=== PATIENT | male | born 1980 | race Caucasian/White ===

== ENCOUNTER 2017-05-19 15:39 | Emergency (ER) | payer OTHER ==
[~2017-05-19] VITALS: Ht 180.3 cm; Wt 65.3 kg
[2017-05-19 15:51] VITALS: Ht 180.3 cm; Wt 65.3 kg
[2017-05-19 16:33] VITALS: O2SAT 97
[2017-05-19] MEDS ORDERED: ACETAMINOPHEN 500 MG TAB PO STA (16:33)
[2017-05-19] MEDS ORDERED: KETOROLAC TROMETHAMINE 30 MG/ML VIAL IV STA (16:33)
[2017-05-19] MEDS ORDERED: SODIUM CHLORIDE 0.9% 1000ML 1,000 ML IV ONE (16:45)
--- NOTE | 2017-05-19 16:48 | EMERGENCY ROOM VISIT NOTE ---
History First contact with patient: 16:20 Chief Complaint: CHEST PAIN Stated Complaint: CHEST PAIN LT SIDE, HARD TIME BREATHING Nursing Triage Summary: Chest pain since yesterday. Cough for about one week. Last night began feeling short of breath. History of Present Illness The patient is a 36 year old male who presents to the Emergency Room with complaints of flulike symptoms and chest pain for approximately 1 week. The patient has had a significant productive cough. His chest pain is on the left side and sharp. It is worse with deep inspiration and coughing. He denies any shortness of breath. He has felt fever and chills. He did not take his temperature at home. He denies any history of coronary disease. No sick contacts. The patient reportedly has a history of a left-sided pulmonary mass. He does not have insurance; therefore, he has not seen a doctor for quite some time The patient also notes an approximately 40 pound weight loss within the last 6- 8 months. No change in appetite. Review of Systems 10 system review performed and negative unless noted in HPI or below Past Medical/Surgical History Pulmonary mass Social History Smoking Status: Current Every Day Smoker Occupation Status: employed Current/Historical Medications Scheduled Buprenorphine Hcl (Subutex), 8 MG SL DAILY Levofloxacin (Levaquin), 500 MG PO DAILY Physical Exam Vital Signs Date Time Temp Pulse Resp B/P (MAP) Pulse Ox O2 Delivery O2 Flow Rate FiO2 05/19/17 19:44 64 24 109/59 95 05/19/17 19:05 37.0 61 18 106/60 95 Room Air 05/19/17 17:19 65 16 110/60 96 Room Air 05/19/17 16:43 66 05/19/17 16:33 97 Room Air 05/19/17 16:33 97 Room Air 05/19/17 15:51 37.0 83 20 126/78 95 Room Air Physical Exam VITALS: Vitals are noted on the nurse's note and reviewed by myself. Vital signs stable. GENERAL: 36-year-old male, mildly acutely ill in appearance, SKIN: The skin was without rashes, erythema, edema, or bruising. Multiple tattoos noted HEAD: Normocephalic atraumatic. MOUTH: Mucous membranes slightly dry. Tonsils are not enlarged. Pharynx without erythema or exudate. Uvula midline. Airway patent. Tongue does not deviate. NECK: Supple without nuchal rigidity. Lymphadenopathy noted in the anterior cervical chain bilaterally. Cervical spine is nontender. No JVD. HEART: Tachycardic, regular rhythm without murmurs gallops or rubs. Tenderness to palpation inferior to the left nipple LUNGS: Clear to auscultation bilaterally without wheezes, rales or rhonchi. No accessory muscle use. ABDOMEN: Positive bowel sounds x 4.Soft, nontender, without organomegaly. No guarding or rebound tenderness. MUSCULOSKELETAL: No muscle atrophy, erythema, or edema noted. Strength 5/5 throughout. NEURO: Patient was alert and oriented to person place and time. Normal sensation to touch. No focal neurological deficits. Medical Decision & Procedures ER Provider Diagnostic Interpretation: CT chest with contrast 1. No evidence for pulmonary embolus. 2. Multifocal patchy airspace opacities and tree-in-bud nodular opacities seen within the bilateral mid to lower lung zones. This is consistent with a bronchopneumonia. Electronically signed by: Jese Santiago M.D. 05/19/2017 6:33 PM Dictated Date/Time: 05/19/2017 6:27 PM The status of this report is Signed. Draft = Not yet reviewed or approved by Radiologist. Signed = Reviewed and approved by Radiologist. <AttendingPhy></AttendingPhy> <FamilyPhy>No Doctor, Assigned</FamilyPhy> < PrimaryPhy>No Doctor, Assigned</PrimaryPhy> <UnitNumber>[id number]</UnitNumber> <VisitNumber>[id number]</VisitNumber> <PatientName>NIGEL UGARTE Laboratory Results 05/19/17 16:40 Red Blood Count 3.73, Mean Corpuscular Volume 86.1, Mean Corpuscular Hemoglobin 29.8, Mean Corpuscular Hemoglobin Concent 34.6, Mean Platelet Volume 9.4, Neutrophils (%) (Auto) 65.3, Lymphocytes (%) (Auto) 16.1, Monocytes (%) (Auto) 17.2, Eosinophils (%) (Auto) 0.9, Basophils (%) (Auto) 0.4, Neutrophils # (Auto ) 5.00, Lymphocytes # (Auto) 1.23, Monocytes # (Auto) 1.32, Eosinophils # (Auto ) 0.07, Basophils # (Auto) 0.03 05/19/17 16:40 Test 05/19/17 16:40 05/19/17 16:48 White Blood Count 7.66 K/uL (4.8-10.8) Red Blood Count 3.73 M/uL (4.7-6.1) Hemoglobin 11.1 g/dL (14.0-18.0) Hematocrit 32.1 % (42-52) Mean Corpuscular Volume 86.1 fL (80-100) Mean Corpuscular Hemoglobin 29.8 pg (25-34) Mean Corpuscular Hemoglobin Concent 34.6 g/dl (32-36) Platelet Count 269 K/uL (130-400) Mean Platelet Volume 9.4 fL (7.4-10.4) Neutrophils (%) (Auto) 65.3 % Lymphocytes (%) (Auto) 16.1 % Monocytes (%) (Auto) 17.2 % Eosinophils (%) (Auto) 0.9 % Basophils (%) (Auto) 0.4 % Neutrophils # (Auto) 5.00 K/uL (1.4-6.5) Lymphocytes # (Auto) 1.23 K/uL (1.2-3.4) Monocytes # (Auto) 1.32 K/uL (0.11-0.59) Eosinophils # (Auto) 0.07 K/uL (0-0.5) Basophils # (Auto) 0.03 K/uL (0-0.2) RDW Standard Deviation 44.8 fL (36.4-46.3) RDW Coefficient of Variation 14.3 % (11.5-14.5) Immature Granulocyte % (Auto) 0.1 % Immature Granulocyte # (Auto) 0.01 K/uL (0.00-0.02) D-Dimer 1220 ug/L FEU (0-500) Anion Gap 5.0 mmol/L (3-11) Est Creatinine Clear Calc Drug Dose 200.3 ml/min Estimated GFR () > 150.0 Estimated GFR (Non- 143.8 BUN/Creatinine Ratio 11.4 (10-20) Calcium Level 8.0 mg/dl (8.5-10.1) Total Bilirubin 0.3 mg/dl (0.2-1) Aspartate Amino Transf (AST/SGOT) 33 U/L (15-37) Alanine Aminotransferase (ALT/SGPT) 34 U/L (12-78) Alkaline Phosphatase 88 U/L (45-117) Total Creatine Kinase 132 U/L (39-308) Creatine Kinase MB 1.3 ng/ml (0.5-3.6) Creatine Kinase MB Ratio 1.0 (0-3.0) Troponin I < 0.015 ng/ml (0-0.045) Total Protein 6.5 gm/dl (6.4-8.2) Albumin 2.7 gm/dl (3.4-5.0) Globulin 3.8 gm/dl (2.5-4.0) Albumin/Globulin Ratio 0.7 (0.9-2) Thyroid Stimulating Hormone (TSH) 1.010 uIu/ml (0.300-4.500) Influenza Type A (RT-PCR) Neg for Influ A (NEG) Influenza Type B (RT-PCR) Neg for Influ B (NEG) Medications Administered Medications (Trade) Dose Ordered Sig/Jimmy Route Start Time Stop Time Status Last Admin Dose Admin Ketorolac Tromethamine (Toradol Inj) 30 mg NOW STAT IV 05/19/17 16:33 05/19/17 16:36 DC 05/19/17 16:33 30 MG Sodium Chloride 1,000 ml @ 999 mls/hr Q1H1M ONCE IV 05/19/17 16:45 05/19/17 17:45 DC 05/19/17 16:45 999 MLS/HR Acetaminophen (Tylenol Tab) 1,000 mg NOW STAT PO 05/19/17 16:33 05/19/17 16:36 DC 05/19/17 16:33 1,000 MG Levofloxacin (Levaquin Tab) 750 mg NOW ONCE PO 05/19/17 19:15 05/19/17 19:16 DC 05/19/17 19:42 750 MG Potassium Chloride (Klor-Con M10) 40 meq NOW STAT PO 05/19/17 19:17 05/19/17 19:18 DC 05/19/17 19:42 40 MEQ ECG Indication: chest pain Rate (beats per minute): 72 Rhythm: normal sinus Findings: left axis deviation Comparison ECG Date: no prior available ED Course Patient was seen and examined Vital signs including blood pressure were reviewed medications list was verified with patient Labs were obtained, and a saline lock was established An EKG was performed and reviewed by myself and my supervising physician. He was put on a monitor. The patient was given Toradol 30 mg IV and Tylenol 1 g by mouth for pain. He was hydrated with 1 L of normal saline. Upon reevaluation, the patient's pain was much better. We discussed his workup. He voiced understanding. The case was also discussed my supervising physician who is in agreement with my plan The patient was given 1 dose of Levaquin. He was also given potassium chloride 40 mEq by mouth Discharge instructions were reviewed, and he was discharged in good condition I Medical Decision Differential diagnosis: Bronchitis, pneumonia, strep pharyngitis, viral pharyngitis, influenza , other viral syndrome, malignancy, thyroid abnormality, Acute myocardial infarction, cardiac arrhythmia, anemia, thyroid abnormality, pneumothorax, pneumonia, bronchitis, pericarditis, pneumothorax, electrolyte imbalance This patient is a 36-year-old male presents to emergency department with flulike symptoms, chest pain and weight loss. On exam, he was mildly acutely ill in appearance. His vital signs were stable. His chest pain was reproducible. My thought was this was likely infectious. His labs indicated an elevated d-dimer, which is why ordered a CT to rule out PE. This was consistent with pneumonia. The patient had good symptomatic relief in the emergency department. He is not hypoxic. This is likely community-acquired. I believe he is stable to be discharged home with close follow-up. He and his significant other are comfortable and agree with this plan. He will be sent home on a 7 day course of Levaquin. He was encouraged to return to the emergency department immediately with any new or worsening symptoms This chart was completed in part utilizing [employer] Speech Voice Recognition software. Attempts were made to minimize the grammatical errors, random word insertions, pronoun errors and incomplete sentences. Any formal questions or concerns about the content, text or information contained within the body of this dictation should be directly addressed to the provider for clarification. Medication Reconcilliation Current Medication List: was personally reviewed by me Blood Pressure Screening Patient's blood pressure: Normal blood pressure Impression Primary Impression: Community acquired pneumonia Departure Information Dispostion Home / Self-Care Condition FAIR Prescriptions Levofloxacin (Levaquin) 500 Mg Tab 500 MG PO DAILY for 6 Days, #6 TAB Prov: Megan Dominguez PA-C 05/19/17 Referrals No Doctor, Assigned (PCP) Patient Instructions ED Pneumonia Adult, My [facility] Additional Instructions You have been evaluated in the emergency department with flulike symptoms and chest pain. This is likely due to pneumonia. Please take the entire course of antibiotics. Please increase your fluids over the next several days. Ibuprofen 800 mg and/or Tylenol 1000 mg every 8 hours for pain or fever You may also alternate these medications for more effective pain relief: Ibuprofen --4 HRS--> Tylenol --4 HRS--> ibuprofen --4 HRS--> Tylenol .... It is very important for you to have close follow-up with your primary care physician. Please call a primary care doctor in the morning for a follow-up appointment. If your symptoms persist, you may need to see a specialist Please do not hesitate to return to the emergency department with any new, worsening or concerning symptoms; especially, difficulty breathing, uncontrolled fever or severe chest pain. Work Instructions Return To Work: 2 days
[2017-05-19 16:54] LABS: BASO % 0.4 %; BASO ABS # 0.03 K/uL (0-0.2); EOS % 0.9 %; EOS ABS # 0.07 K/uL (0-0.5); HEMATOCRIT 32.1 % (42-52); HEMOGLOBIN 11.1 g/dL (14.0-18.0); IG# 0.01 K/uL (0.00-0.02); LYMPH % 16.1 %; LYMPH ABS # 1.23 K/uL (1.2-3.4); MEAN CELL VOLUME 86.1 fL (80-100); MEAN CORPUSCULAR HEMOGLOBIN 29.8 pg (25-34); MEAN CORPUSCULAR HGB CONC 34.6 g/dl (32-36); MEAN PLATELET VOLUME 9.4 fL (7.4-10.4); MONO % 17.2 %; MONO ABS # 1.32 K/uL (0.11-0.59); NEUT % 65.3 %; PLATELET COUNT 269 K/uL (130-400); RED CELL DISTRIBUTION WIDTH CV 14.3 % (11.5-14.5); RED CELL DISTRIBUTION WIDTH SD 44.8 fL (36.4-46.3); WHITE BLOOD COUNT 7.66 K/uL (4.8-10.8)
[2017-05-19 17:11] LABS: ALBUMIN 2.7 gm/dl (3.4-5.0); ALT/SGPT 34 U/L (12-78); AST/SGOT 33 U/L (15-37); BLOOD UREA NITROGEN 5 mg/dl (7-18); CARBON DIOXIDE 30 mmol/L (21-32); CREATININE 0.48 mg/dl (0.60-1.40); GLUCOSE 110 mg/dl (70-99); POTASSIUM 3.2 mmol/L (3.5-5.1); SODIUM 136 mmol/L (136-145)
[2017-05-19 17:21] LABS: ALKALINE PHOSPHATASE 88 U/L (45-117); CKMB 1.3 ng/ml (0.5-3.6); TOTAL PROTEIN 6.5 gm/dl (6.4-8.2)
[2017-05-19] MEDS ORDERED: OPTIRAY 320 IV PRN (18:00)
[2017-05-19 18:04] LABS: INFLUENZA A PCR Neg for Influ A (NEG); INFLUENZA B PCR Neg for Influ B (NEG)
--- NOTE | 2017-05-19 18:34 | DIAGNOSTIC IMAGING REPORT ---
CHEST CTA for PULMONARY ARTERIES CT DOSE: 276.36 mGy.cm HISTORY: Left-sided chest pain. Elevated d-dimer. TECHNIQUE: Multiaxial CT images of the chest were performed following the intravenous administration of contrast to evaluate the pulmonary arteries. Maximal intensity projection images were also obtained. A dose lowering technique was utilized adhering to the principles of ALARA. COMPARISON STUDY: None. FINDINGS: The visualized liver and spleen are unremarkable. The heart is normal in size. Trace right pleural effusion. Mild bilateral hilar lymphadenopathy. Dominant hilar lymph node on the left measures 11 mm. A few prominent mediastinal lymph nodes. No suspicious lytic or blastic osseous lesions. No pneumothorax. Mild bronchial wall thickening. There are few opacified left lower lobe segmental bronchi. Multifocal patchy airspace opacities and tree-in-bud nodular opacities seen within the bilateral mid to lower lung zones. This is consistent with a bronchopneumonia. Normal caliber thoracic aorta with no evidence for dissection. No filling defects within the pulmonary arteries to suggest pulmonary embolus. IMPRESSION: 1. No evidence for pulmonary embolus. 2. Multifocal patchy airspace opacities and tree-in-bud nodular opacities seen within the bilateral mid to lower lung zones. This is consistent with a bronchopneumonia. Electronically signed by: Jese Santiago M.D. 05/19/2017 6:33 PM Dictated Date/Time: 05/19/2017 6:27 PM
[2017-05-19 19:05] VITALS: TEMP 37
[2017-05-19] MEDS ORDERED: LEVOFLOXACIN 250 MG TAB PO ONE (19:15)
[2017-05-19] MEDS ORDERED: POTASSIUM CHLORIDE 10 MEQ TABCR PO STA (19:17)
[2017-05-19] MEDS ORDERED: LEVO-366 PO (19:21)
[2017-05-19 19:44] VITALS: BP 109/59; PULSE 64; O2SAT 95
== END 2017-05-19 19:44 | disposition home or self-care (01) ==
LOC: C.EDB 15:42 → C.EDC 19:44
DX: J18.9 Pneumonia, unspecified organism (principal); F17.210 Nicotine dependence, cigarettes, uncomplicated

== ENCOUNTER 2017-05-23 16:06 | Emergency (ER) | payer OTHER ==
[~2017-05-23] VITALS: Ht 180.3 cm; Wt 63.1 kg
[~2017-05-23 16:06] MED LIST: LEVO-366 PO
[2017-05-23 16:17] VITALS: TEMP 36.6; Ht 180.3 cm; Wt 63.1 kg
[2017-05-23] MEDS ORDERED: BUPR8SUB19 SL (16:22)
[2017-05-23 18:49] LABS: BASO % 0.5 %; BASO ABS # 0.05 K/uL (0-0.2); EOS % 2.4 %; EOS ABS # 0.25 K/uL (0-0.5); HEMATOCRIT 39.3 % (42-52); HEMOGLOBIN 13.8 g/dL (14.0-18.0); IG# 0.02 K/uL (0.00-0.02); LYMPH % 18.7 %; LYMPH ABS # 1.95 K/uL (1.2-3.4); MEAN CORPUSCULAR HEMOGLOBIN 30.2 pg (25-34); MEAN CORPUSCULAR HGB CONC 35.1 g/dl (32-36); MEAN PLATELET VOLUME 9.2 fL (7.4-10.4); MONO % 10.1 %; MONO ABS # 1.05 K/uL (0.11-0.59); NEUT % 68.1 %; NEUT ABS # 7.12 K/uL (1.4-6.5); PLATELET COUNT 487 K/uL (130-400); RED CELL DISTRIBUTION WIDTH CV 14.4 % (11.5-14.5); RED CELL DISTRIBUTION WIDTH SD 44.8 fL (36.4-46.3); WHITE BLOOD COUNT 10.44 K/uL (4.8-10.8)
[2017-05-23 19:07] LABS: BLOOD UREA NITROGEN 9 mg/dl (7-18); CALCIUM 8.6 mg/dl (8.5-10.1); CARBON DIOXIDE 31 mmol/L (21-32); CREATININE 0.55 mg/dl (0.60-1.40); GLUCOSE 94 mg/dl (70-99); POTASSIUM 3.7 mmol/L (3.5-5.1); SODIUM 138 mmol/L (136-145)
--- NOTE | 2017-05-23 19:17 | DIAGNOSTIC IMAGING REPORT ---
CHEST ONE VIEW PORTABLE CLINICAL HISTORY: Chest pain. COMPARISON STUDY: Chest CT May 19, 2017. FINDINGS: There is no pneumothorax or pleural effusion. Cardiac size is normal. Mediastinal contours are normal. There is mild diffuse reticulonodular interstitial thickening with a few mild lower lung airspace opacities. Findings have slightly improved since exam of May 19, 2017. IMPRESSION: Mild interval improvement in reticulonodular interstitial thickening and mild lower lung airspace opacities since chest CT of May 19, 2017. The findings suggest mild improvement of bronchopneumonia. Electronically signed by: Ochoa Rodriguez M.D. 05/23/2017 7:16 PM Dictated Date/Time: 05/23/2017 7:14 PM
[2017-05-23 20:21] VITALS: BP 118/75; PULSE 75; O2SAT 97
--- NOTE | 2017-05-24 00:24 | EMERGENCY ROOM VISIT NOTE ---
History Report prepared by Demetrio: Darya Greenwood Under the Supervision of: Dr. Chavo Lainez D.O. First contact with patient: 17:54 Chief Complaint: RESPIRATORY PROBLEMS Stated Complaint: CHEST PAIN, COUGH, HEADACHE History of Present Illness The patient is a 36 year old male who presents to the Emergency Room with complaints of persistent cough starting 1.5 weeks ago. The patient was seen in the ED 4 days ago and started on Levaquin for pneumonia. He states that he is not feeling any better and still having a cough. He is having chest pain with deep breaths. He is feeling fatigued. He has had night sweats. He denies any fever. He is on Subutex. He has a history of crystal meth and painkiller abuse. He denies any history of IV drug abuse. He works in construction. He has a mass in his left lung which was discovered last October. He has not been able to follow up as he has no insurance. Source of History: patient Onset: 1.5 weeks ago Position: other (global) Quality: other (cough) Timing: other (persistent) Associated Symptoms: + diaphoresis, + chest pain, + fatigue, No fevers Review of Systems See HPI for pertinent positives & negatives. A total of 10 systems reviewed and were otherwise negative. Past Medical & Surgical History of pulmonary mass. Family History No pertinent family history stated. Social History Smoking Status: Current Every Day Smoker Marital Status: in relationship Occupation Status: employed Current/Historical Medications Scheduled Buprenorphine Hcl (Subutex), 8 MG SL DAILY Levofloxacin (Levaquin), 500 MG PO DAILY Allergies Coded Allergies: Cephalexin (Unverified Allergy, Severe, 'HIVES, SWELLING, FELT LIKE I WAS GOING TO ', 05/19/17) Physical Exam Vital Signs Date Time Temp Pulse Resp B/P (MAP) Pulse Ox O2 Delivery O2 Flow Rate FiO2 05/23/17 20:21 75 20 118/75 97 05/23/17 18:19 81 20 122/78 97 05/23/17 16:20 97 Room Air 05/23/17 16:17 36.6 110 18 132/78 97 Room Air Physical Exam GENERAL: Sitting up in bed, alert, well appearing, well nourished, no distress, non-toxic, talking in full sentences EYE EXAM: normal conjunctiva. OROPHARYNX: no exudate, no erythema, lips, buccal mucosa, and tongue normal and mucous membranes are moist NECK: supple, no nuchal rigidity, no adenopathy, non-tender LUNGS: Clear to auscultation. Normal chest wall mechanics HEART: no murmurs, S1 normal and S2 normal ABDOMEN: abdomen soft, non-tender, normo-active bowel sounds, no masses, no rebound or guarding. BACK: Back is symmetrical on inspection and there is no deformity, no midline tenderness, no CVA tenderness. SKIN: no rashes and no bruising UPPER EXTREMITIES: upper extremities are grossly normal. LOWER EXTREMITIES: No pitting edema. NEURO EXAM: Normal sensorium, cranial nerves II-XII grossly intact, normal speech, no gross weakness of arms, no gross weakness of legs. Medical Decision & Procedures ER Provider Diagnostic Interpretation: Xray results as stated below per my and the radiologist's interpretation: CHEST ONE VIEW PORTABLE CLINICAL HISTORY: Chest pain. COMPARISON STUDY: Chest CT May 19, 2017. FINDINGS: There is no pneumothorax or pleural effusion. Cardiac size is normal. Mediastinal contours are normal. There is mild diffuse reticulonodular interstitial thickening with a few mild lower lung airspace opacities. Findings have slightly improved since exam of May 19, 2017. IMPRESSION: Mild interval improvement in reticulonodular interstitial thickening and mild lower lung airspace opacities since chest CT of May 19, 2017. The findings suggest mild improvement of bronchopneumonia. Electronically signed by: Ochoa Rodriguez M.D. 05/23/2017 7:16 PM Dictated Date/Time: 05/23/2017 7:14 PM Laboratory Results 05/23/17 18:35 Red Blood Count 4.57, Mean Corpuscular Volume 86.0, Mean Corpuscular Hemoglobin 30.2, Mean Corpuscular Hemoglobin Concent 35.1, Mean Platelet Volume 9.2, Neutrophils (%) (Auto) 68.1, Lymphocytes (%) (Auto) 18.7, Monocytes (%) (Auto) 10.1, Eosinophils (%) (Auto) 2.4, Basophils (%) (Auto) 0.5, Neutrophils # (Auto ) 7.12, Lymphocytes # (Auto) 1.95, Monocytes # (Auto) 1.05, Eosinophils # (Auto ) 0.25, Basophils # (Auto) 0.05 05/23/17 18:35 Test 05/23/17 18:35 White Blood Count 10.44 K/uL (4.8-10.8) Red Blood Count 4.57 M/uL (4.7-6.1) Hemoglobin 13.8 g/dL (14.0-18.0) Hematocrit 39.3 % (42-52) Mean Corpuscular Volume 86.0 fL (80-100) Mean Corpuscular Hemoglobin 30.2 pg (25-34) Mean Corpuscular Hemoglobin Concent 35.1 g/dl (32-36) Platelet Count 487 K/uL (130-400) Mean Platelet Volume 9.2 fL (7.4-10.4) Neutrophils (%) (Auto) 68.1 % Lymphocytes (%) (Auto) 18.7 % Monocytes (%) (Auto) 10.1 % Eosinophils (%) (Auto) 2.4 % Basophils (%) (Auto) 0.5 % Neutrophils # (Auto) 7.12 K/uL (1.4-6.5) Lymphocytes # (Auto) 1.95 K/uL (1.2-3.4) Monocytes # (Auto) 1.05 K/uL (0.11-0.59) Eosinophils # (Auto) 0.25 K/uL (0-0.5) Basophils # (Auto) 0.05 K/uL (0-0.2) RDW Standard Deviation 44.8 fL (36.4-46.3) RDW Coefficient of Variation 14.4 % (11.5-14.5) Immature Granulocyte % (Auto) 0.2 % Immature Granulocyte # (Auto) 0.02 K/uL (0.00-0.02) Anion Gap 5.0 mmol/L (3-11) Est Creatinine Clear Calc Drug Dose 168.9 ml/min Estimated GFR () > 150.0 Estimated GFR (Non- 136.0 BUN/Creatinine Ratio 16.5 (10-20) Calcium Level 8.6 mg/dl (8.5-10.1) Total Creatine Kinase 62 U/L (39-308) Creatine Kinase MB 1.0 ng/ml (0.5-3.6) Creatine Kinase MB Ratio 1.6 (0-3.0) Troponin I < 0.015 ng/ml (0-0.045) Laboratory results per my review. ECG Indication: chest pain Rate (beats per minute): 68 Rhythm: sinus rhythm Findings: left axis deviation, no ectopy Change: Patient's electrocardiogram interpreted by me. ED Course ED COURSE: Vital signs were reviewed and showed normal vitals. The patients medical record was reviewed The above diagnostic studies were performed and reviewed. ED treatments and interventions as stated above. 175: The patient was evaluated in room C8. A complete history and physical examination was performed. 2000: Upon reevaluation, the patient is feeling better. He does not want to stay. I discussed my findings with the patient and he understands and agrees with the treatment plan. Based on the patients age, coexisting illnesses, exam and lab findings the decision to treat as an outpatient was made. The patient remained stable while under my care. The patient appeared well at the time of discharge. Medical Decision Differential diagnoses includes but is not limited to pneumonia, bronchitis, COPD/Asthma exacerbation, pneumothorax, pulmonary embolism, congestive heart failure, acute coronary syndrome Patient is a 36-year-old male who was recently seen here 2 days ago and diagnosed with multifocal pneumonia. Vitals are stable. BMP all with CBC and troponin were negative. Chest x-ray shows no focal infiltrate. Patient was given fluids. Currently on Levaquin. On reevaluation he notes that he is feeling better and would like to be discharged. He did request a work note. Patient was updated bedside and discharged follow-up as an outpatient. Vitals were stable. No respiratory distress. No leukocytosis. Discussed with Pt concerning signs and symptoms to watch out for. Pt was instructed to follow up with their PCP and discussed with the patient their option to return to the ED at anytime for persistent or worsening symptoms. The appropriate anticipatory guidance and out-patient management, including indications for return to the emergency department, were explained at length to the patient and understood. Medication Reconcilliation Current Medication List: was personally reviewed by me Blood Pressure Screening Patient's blood pressure: Normal blood pressure Blood pressure disposition: Did not require urgent referral Impression Primary Impression: Pneumonia Scribe Attestation The scribe's documentation has been prepared under my direction and personally reviewed by me in its entirety. I confirm that the note above accurately reflects all work, treatment, procedures, and medical decision making performed by me. Departure Information Dispostion Home / Self-Care Referrals No Doctor, Assigned (PCP) Forms HOME CARE DOCUMENTATION FORM, IMPORTANT VISIT INFORMATION, WORK / SCHOOL INSTRUCTIONS Patient Instructions My [facility], Pneumonia (Bacterial) - [facility] Additional Instructions Please follow up with your primary care doctor with in the next 24 hours. Any worsening of your symptoms, please return to the ED immediately. This includes any fevers greater than 100.4, worsening pain, chest pain, shortness breath, persistent nausea, vomiting, unable to eat or drink, or any other concerning signs or symptoms from your standpoint. Please take Tylenol or Motrin as needed for fevers Please continue your antibiotics as prescribed. Problem Qualifiers Primary Impression: Pneumonia Pneumonia type: due to unspecified organism Laterality: unspecified laterality Lung location: unspecified part of lung Qualified Codes: J18.9 - Pneumonia, unspecified organism
== END 2017-05-23 20:22 | disposition home or self-care (01) ==
LOC: C.EDB 16:08 → C.EDC 20:22
DX: J18.9 Pneumonia, unspecified organism (principal); R91.8 Other nonspecific abnormal finding of lung field; F17.200 Nicotine dependence, unspecified, uncomplicated

== ENCOUNTER 2017-08-26 14:29 | Emergency (ER) | payer OTHER ==
[~2017-08-26] VITALS: Ht 180.3 cm; Wt 67.2 kg
[~2017-08-26 14:29] MED LIST changes: +BUPR8SUB19 SL; -LEVO-366 PO
[2017-08-26 14:34] VITALS: BP 122/82; PULSE 70; TEMP 36.7; O2SAT 97; Ht 180.3 cm; Wt 67.2 kg
[2017-08-26] MEDS ORDERED: PENICILLIN V POTASSIUM 250 MG TAB PO STA (14:55)
[2017-08-26] MEDS ORDERED: PENI-82 PO (15:09)
[2017-08-26] MEDS ORDERED: IBUP-1427 PO (15:09)
[2017-08-26] MEDS ORDERED: ACET-1257 PO (15:09)
--- NOTE | 2017-08-26 15:09 | EMERGENCY ROOM VISIT NOTE ---
ED Visit Note First contact with patient: 14:41 CHIEF COMPLAINT: Toothache HISTORY OF PRESENT ILLNESS: This 37 year old male patient presented to the emergency department, ambulatory, with a progressive toothache for past 4 days. The patient believes it is coming from a lower right molar. He reports "terrible teeth" but has not contacted a dentist, as he does not currently have dental insurance. The pain is now steady and severe and radiates to the face. They rate their pain a 9/10 and the ibuprofen they have been taking has not relieved the pain. Denies facial swelling or fever. The patient denies any discharge from the mouth, but states "my saliva tastes funny." REVIEW OF SYSTEMS: A 6 system review of systems was completed with positives and pertinent negatives listed in the HPI. ALLERGIES: Cephalexin MEDICATIONS: "none". When asked about Subutex, patient states "I'm quitting that" PMH: Chronic pain SOCIAL HISTORY: The patient lives locally with family. He denies drug, alcohol use. He admits to smoking 1/2 ppd. PHYSICAL EXAM: Vitals are noted on the nurse's note and reviewed by myself. Vital signs stable. Temperature 36.7C orally. GENERAL: This is a 37-year-old white male, in no acute distress, nondiaphoretic, well-developed well- nourished. Mouth: The #30 tooth is very carious and the gum is swollen and tender around it, without any discharge or signs of an abscess. The remainder of the pharynx and tonsils are without erythema, edema, or exudate. The airway is patent. There is no facial swelling, cervical or submandibular lymphadenopathy. The patient appears uncomfortable and in pain. The patient has overall very poor dental hygiene. EARS: External auditory canals clear, tympanic membranes pearly mai without erythema or effusion bilaterally. ED COURSE: The patient was seen and evaluated as above. His symptoms are consistent with a periapical abscess. He will be treated with antibiotics. I discussed the importance of close follow-up with the dentist, as the emergency department and any treatments we performed here are not long-term solutions to dental pain. He will not be given narcotics, as he is currently prescribed Subutex. The patient states he is working to get his insurance to go through and will schedule a dentist appointment as soon as possible. The patient was given his first dose of penicillin here in the emergency department. A prescription was sent to the pharmacy. He was also given prescriptions for extra strength Tylenol and Motrin. Discharge instructions reviewed, the patient was discharged home in good condition. I attest that I have personally reviewed the patient's current medication list. Patient was found to have normal blood pressure on screening and does not require follow-up. Differential diagnosis includes odontalgia, periapical abscess, acute sinusitis , osteomyelitis, gingivitis, pulpitis, dental caries, periodontitis, malignancy , and others DIAGNOSIS: Odontalgia The chart was completed utilizing [employer] voice recognition software. Grammatical errors, random word insertions, pronoun errors, and incomplete sentences are an occasional consequence of this system due to software limitations, ambient noise, and hardware issues. Any formal questions or concerns about the content, text, or information contained within the body of this dictation should be directly addressed to the provider for clarification. Current/Historical Medications Scheduled Buprenorphine Hcl (Subutex), 8 MG SL DAILY Penicillin V Potassium (Veetids), 500 MG PO QID Scheduled PRN Acetaminophen (Tylenol Extra Strength), 2 TABS PO Q8 PRN for Pain Ibuprofen Tab (Motrin), 600 MG PO Q6H PRN for Pain Allergies Coded Allergies: Cephalexin (Unverified Allergy, Severe, 'HIVES, SWELLING, FELT LIKE I WAS GOING TO ', 08/26/17) Vital Signs Date Time Temp Pulse Resp B/P (MAP) Pulse Ox O2 Delivery O2 Flow Rate FiO2 08/26/17 14:34 36.7 70 18 122/82 97 Room Air Medications Administered Medications (Trade) Dose Ordered Sig/Jimmy Route Start Time Stop Time Status Last Admin Dose Admin Penicillin V Potassium (Veetids Tab) 500 mg NOW STAT PO 08/26/17 14:55 08/26/17 14:56 DC 08/26/17 15:14 500 MG Departure Information Impression Primary Impression: Odontalgia Dispostion Home / Self-Care Condition GOOD Prescriptions Acetaminophen (Tylenol Extra Strength) 500 Mg Tab 2 TABS PO Q8 Y for Pain, #100 TABS Prov: Keya Pickard PA-C 08/26/17 Ibuprofen Tab (MOTRIN) 600 Mg Tab 600 MG PO Q6H Y for Pain, #100 TAB Prov: Keya Pickard PA-C 08/26/17 Penicillin V Potassium (Veetids) 500 Mg Tab 500 MG PO QID for 10 Days, #40 TAB Prov: Keya Pickard, JAROCHO 08/26/17 Referrals No Doctor, Assigned (PCP) Patient Instructions ED Abscess Dental, [facility] Additional Instructions You have been treated in the Emergency Department for Dental Pain. You were prescribed penicillin to be taken 4 times daily. This is an antibiotic. All antibiotics have the potential to cause diarrhea. Stop this medication and contact a medical provider if you were to develop any significant adverse side effects including: wheezing, shortness of breath, passing out, vomiting, or a diffuse rash. Always take antibiotics as directed and COMPLETE the ENTIRE course regardless of the improvement of your symptoms. For pain control, you can use the following [id number] medicines (if >12 yo): Ibuprofen(Motrin, Advil) may be used for fever or pain. Use 600mg every six hours as needed. Take with food. Avoid using more than 2400mg in a 24 hour period. Do not use 2400mg per day for more than three consecutive days without physician direction. Prolonged inappropriate use can lead to stomach upset or ulcers. (AND/OR) Acetaminophen(Tylenol) may be used for fever or pain. Use 1000mg every six hours as needed. Avoid using more than 3000mg in a 24 hour period. Refrain from smoking cigarettes or using chewing tobacco until you have been evaluated by your dentist. Keeping beverages lukewarm and consuming soft foods can decrease your pain. Warm compresses over the affected area may offer some relief. You MUST seek evaluation of your dental pain by a dentist following your visit to the Emergency Department. The Emergency Department is not capable of treating dental issues long-term. You should call your dentist as soon as possible to make an appointment for evaluation of your dental pain. Return to the emergency department if you develop the following symptoms despite treatment course outlined above: fever, intractable pain, increased redness, swelling, or purulent discharge.
== END 2017-08-26 15:20 | disposition home or self-care (01) ==
LOC: C.EDB 14:30 → C.EDD 15:10
DX: K08.89 Other specified disorders of teeth and supporting structures (principal); K02.9 Dental caries, unspecified; F17.200 Nicotine dependence, unspecified, uncomplicated; Z88.1 Allergy status to other antibiotic agents